=== PATIENT | male | born 1995 | race Two or more races ===

== ENCOUNTER 2024-10-10 14:53 | Emergency (ER) | payer OTHER ==
[~2024-10-10] VITALS: Ht 172.7 cm; Wt 61.2 kg
[2024-10-10 15:16] VITALS: BP 137/87; O2SAT 98
[2024-10-10] MEDS ORDERED: ORPHENADRINE CITRATE 30 MG/ML AMPUL IM STA (16:49)
[2024-10-10] MEDS ORDERED: KETOROLAC TROMETHAMINE 30 MG VIAL IM STA (16:49)
[2024-10-10] MEDS ORDERED: KETOROLAC TROMETHAMINE 30 MG VIAL ONE (16:54)
[2024-10-10] MEDS ORDERED: ORPHENADRINE CITRATE 30 MG/ML AMPUL ONE (16:55)
== END 2024-10-10 18:07 | disposition home or self-care (01) ==
LOC: ER 14:53
DX: T14.8XXA Other injury of unspecified body region, initial encounter (principal); V49.9XXA Car occupant (driver) (passenger) injured in unspecified traffic accident, initial encounter; Y93.89 Activity, other specified; Y92.413 State road as the place of occurrence of the external cause; Y99.9 Unspecified external cause status; M54.89 Other dorsalgia